=== PATIENT | female | born 2000 | race Caucasian/White ===

== ENCOUNTER 2021-07-07 16:19 | Outpatient (REF) | payer BC, SELFPAY | END 2021-07-07 16:20 | disposition home or self-care (01) | LOC: NCHCN 16:19 | PROVIDERS: Visit Provider Nurse Practitioner Family | DX: R35.0 Frequency of micturition (principal) | CPT/HCPCS: 87077; 87086; 87186 ==

== ENCOUNTER 2023-04-18 07:05 | Day surgery (SDC) | payer BC, SELFPAY ==
[2023-04-18] VITALS (8 sets, daily range): BP systolic 100–112; BP diastolic 62–79; PULSE 55–68; RESP 12–18; TEMP 36.4–36.8; O2SAT 99–100; BMI 27.2
[2023-04-18] MEDS: Lactated Ringers 1,000 ML 80 ML IV (07:52)
--- NOTE | 2023-04-18 07:55 | W.ANESPRE ---
General Info Date of Service Date Performed: 04/18/23 Height: 5 ft 3.75 in Weight: 71.4 kg Body Mass Index (BMI): 27.2 Surgical Procedure: Operation Date: 04/18/23 08:55 Proposed Procedure Side Surgeon p Tonsillectomy & Possible Adenoidectomy Jet Vogt MD Meds Allergies and Home Medications Allergies Allergy/AdvReac Type Severity Reaction Status Date / Time No Known Allergies Allergy Verified 04/18/23 07:19 Home Medication Medication Instructions Recorded citalopram 10 mg tablet 10 mg PO HS 12/17/22 clotrimazole 1 % vaginal cream 1 appful vaginal QHS 12/17/22 etonogestrel 68 mg subdermal 1 implant subdermal ONCE 12/17/22 implant (Nexplanon) linaclotide 72 mcg capsule 72 mcg PO HS 12/17/22 (Linzess) cholecalciferol (vitamin D3) 125 125 mcg PO DAILY 04/13/23 mcg (5,000 unit) capsule Current Visit Medications: Current Medications Generic Name Dose Route Start Last Admin Trade Name Freq PRN Reason Stop Dose Admin Ringer's Solution 1,000 mls @ 80 mls/hr 04/18/23 06:00 04/18/23 07:52 IV 04/18/23 23:59 80 mls/hr INFUSION JANE Administration Cefazolin Sodium/Dextrose 2 gm in 50 mls @ 100 mls/hr 04/18/23 06:00 Ancef Duplex IVPB 04/18/23 23:59 PREOP JANE Tranexamic Acid 1,000 mg/ 60 mls @ 360 mls/hr 04/18/23 06:00 Sodium Chloride IVPB 04/18/23 18:00 PREOP JANE IV Miscellaneous Supplies 1 each 04/18/23 06:00 Iv Access IV 04/18/23 23:59 DIRECTED JANE Sodium Chloride 0 ml 04/18/23 06:00 Normal Saline Flush 10 Ml Syr IV 04/18/23 23:59 PRN PRN Sodium Chloride 0 ml 04/18/23 06:00 Normal Saline 10 Ml Vial IJ 04/18/23 23:59 DIRECTED PRN Sterile Water 0 ml 04/18/23 06:00 Water,Injection,Sterile 10 Ml Vial IJ 04/18/23 23:59 DIRECTED PRN PFSH Active Problems Active Problems: Problem Status Onset Code Tonsillar hypertrophy J35.1 Tonsil stone J35.8 Chronic tonsillitis J35.01 Medical History Medical History Anxiety disorder Depression IBS (irritable bowel syndrome) Iron deficiency anemia Irregular menses Low serum vitamin B12 Palpitations Per pt. states it was relatd to her b12 and anxiety states it was more stress induced (2018) Presence of subcutaneous contraceptive implant Vitamin D deficiency Surgical History Surgical History Encounter for Pap smear of cervix with HPV DNA cotesting 01/04/2022 History of colonoscopy 07/10/2021 Tobacco Smoking/Tobacco Use Status: Never Alcohol Alcohol Intake: current Alcohol intake frequency: a few times a week Substance Use Substance use: Never Substance use type: does not use Vital Signs and Lab Results Vital Signs Most Recent Vital Signs in EMR: Most Recent Vital Signs Temp Pulse Resp BP Pulse Ox 36.5 C 68 18 103/74 100 04/18/23 07:12 04/18/23 07:12 04/18/23 07:12 04/18/23 07:12 04/18/23 07:12 Point of Care Results Point of Care Results: POC- Test(urine) Negative 04/18/23 07:38 Lab Results Blood Type / Crossmatch: No Data to Display Complete Blood Count: No Data to Display Complete Metabolic Panel: No Data to Display Liver Function Panel: No Data to Display Coagulation Panel: No Data to Display Cardiac Panel: No Data to Display Arterial Blood Gas: No Data to Display Venous Blood Gas: No Data to Display Pancreas Panel: No Data to Display Thyroid Panel: No Data to Display Infectious Disease: No Data to Display Blood Cultures: No Data to Display Toxicology Panel: No Data to Display Panel: No Data to Display Anesthesia Assessment and Plan Anesthesia History Personal History: No History of Anesthesia Complications Family History: No Family History of Anesthesia Complications Exercise Tolerance Exercise Tolerance: Metabolic Equivalents>4 Pertinent Negatives Pertinent Negatives: No Symptoms of GERD, No Major Cardiovascular Symptoms or Complaints, No Major Pulmonary Symptoms or Complaints and No History of CVA/TIA Cardiac & Pulmonary Exam Cardiac Exam: Normal S1/S2 Heart Sounds Pulmonary Exam: Clear Bilateral Breath Sounds Implantable Cardiac Device Does patient have a Pacemaker or an ICD?: No Airway Exam Known Difficult Airway: No Mallampati Class: 1 Mouth Opening: Normal (> 3cm) Thyromental Distance: Greater than 3 cm Neck Range of Motion: Full ROM Neck Circumference: Normal Teeth Condition: Normal Dentition ASA Classification ASA Score: ASA 2 Emergency Case?: No NPO Status NPO Status: NPO Clears >2 hours, Solids >8 hours Status Status: Negative HCG Anesthesia Plan Resuscitation Status: Full Code Anesthesia Technique: General Anesthesia Airway Planned: Endotracheal Tube Monitors Used: Standard Monitors
[2023-04-18] MEDS: ceFAZolin 2 GM/50 ML BAG IVPB (08:30)
--- NOTE | 2023-04-18 08:47 | TONSIL_PTH ---
PATIENT: Jeanette Benítez LOC: [facility] U#:[id number] AGE/SX: 22/F ROOM: RE04/18/[address]: Jet Vogt MD : 2000 BED: DIS: 04/18/2023 SPEC #: [id number] RECD: 04/18/23 12:28 STATUS: MICHAEL REQ #: [id number] JEAN: 04/18/23 08:[address]: Jet Vogt DEPT: Surgical Specimen RECD BY: Iraida Vo ENTERED: 04/18/23 12:28 SP TYPE: TONSIL OTHR DR: Petrona Gonzalez Tissues: 1 - TONSIL AGE 17 & OVER 2 - TONSIL AGE 17 & OVER Procedures: GROSS AND MICRO LEVEL 3 Comments: [id number]
--- NOTE | 2023-04-18 09:13 | W.PM.DSUDISC ---
Date of service: 04/18/23 Time of Service: 09:13 Discharge Plan Disposition Condition: Good Discharge Details Reason For Visit: Tonsillectomy Attending Provider: Jet Vogt Primary Care Provider: Petrona Gonzalez Home Meds and New Rx's Prescriptions: No Action cholecalciferol (vitamin D3) 125 mcg (5,000 unit) capsule 125 mcg PO DAILY citalopram 10 mg tablet 10 mg PO HS clotrimazole 1 % cream 1 appful vaginal QHS Linzess 72 mcg capsule 72 mcg PO HS Nexplanon 68 mg implant 1 implant subdermal ONCE Rx Instructions: as a single dose Discharge Instructions Additional Instructions: My cell phone number is [phone]. Please call with any questions or concerns. If you deem it an emergency and I cannot be reached, please call [phone] or proceed to the emergency room Stand Alone Forms: ENT- T&A Instr. Sin Referrals: Jet Vogt MD [ [facility] STAFF PHYSICIAN] - (1 month, please call for appointment prior to patient's departure)
--- NOTE | 2023-04-18 09:15 | W.PM.OP ---
Date of service: 04/18/23 Time of Service: 09:15 Operative Note Operative Note DATE OF PROCEDURE: 04/18/23 PRE-OP DIAGNOSIS: Chronic tonsillitis POST-OP DIAGNOSIS: same PROCEDURE: Tonsillectomy SURGEON: Jet Vogt ANESTHESIA TYPE: General LMA/ETT Refer to Anesthesia Record ESTIMATED BLOOD LOSS: 100 PATHOLOGY: other (Tonsils) COMPLICATIONS: None Patient was transported to: PACU Patient's condition: stable Indications: Patient with the above problems. Options were explained to family regarding further management. They elected to undergo the above procedure. Consent was filled out and signed prior to surgery. H&P was reviewed. There have been no changes. All questions were answered prior to surgery. Risks of narcotics were discussed at length again. Findings: Atrophic adenoids, palate intact to inspection and palpation, posterior choana widely patent, 3+ tonsils with copious cryptic debris, tonsils were quite friable Procedure Description: After obtaining an adequate level of general endotracheal anesthesia the patient was positioned in the supine position and prepped and draped in appropriate fashion. A Amanda Tarun mouthgag was carefully introduced into the oral cavity and opened revealed soft and hard palate which were examined revealing no evidence of an occult cleft palate. 0.25% Marcaine with 1/100,000 epinephrine was injected in the submucosal plane around each tonsil. The adenoids were examined revealing no significant adenoid. Each tonsil was then pulled medially and posteriorly and a 12 blade used to incise mucosa along the superior, anterior, and posterior edges of the tonsil. A Casa elevator was used to disarticulate the tonsil from the superior tonsillar fossa and the tonsil was then carefully dissected from the tonsillar bed down to the inferior pole at which point time a tonsillar snare was used to amputate the tonsil from the tonsillar fossa. Once been accomplished bilaterally, electrocautery suction tip catheter set on 15 W coagulation was used to achieve relative hemostasis within the tonsillar beds. A Amanda Tarun mouthgag was relaxed and reopened revealing no further bleeding. Valsalva was performed to 40 with no bleeding. The patient was then awakened and extubated by anesthesia and taken to the recovery room in stable condition. I was present throughout the entire case.
[2023-04-18] MEDS: ACETAMINOPHEN 1,000 MG/100 ML BTL 400 MG IVPB (09:38)
[2023-04-18] MEDS: Ibuprofen 600 MG TAB PO (10:18)
--- NOTE | 2023-04-18 13:39 | W.ANESPOSTOP ---
Postoperative Evaluation Date, Time and Location Date Performed: 04/18/23 Time Performed: 13:40 Patient Location: Day Surgery Unit Vital Signs Most Recent Imported Vital Signs: Most Recent Vital Signs Temp Pulse Resp BP Pulse Ox 36.5 C 62 18 107/68 100 04/18/23 10:47 04/18/23 10:47 04/18/23 10:47 04/18/23 10:47 04/18/23 10:47 Pain Score Most Recent Pain Score: Most Recent Pain Score Pain Level 4 04/18/23 10:47 Assessment Mental Status: Awake (Alert & Oriented to Patient Baseline) Airway and Respiratory Function: Patent airway with normal (patient baseline) respiratory exam Cardiovascular Function: Hemodynamically Stable Hydration Status: Adequately Hydrated Nausea & Vomiting: No Nausea or Vomiting Pain: Pain is tolerable per patient Peripheral Nerve Block: Patient did not receive a nerve block
== END 2023-04-18 11:02 ==
PROVIDERS: PCP Advanced Practice Midwife; Visit Provider Otolaryngology
PROC: (CPT 42826; principal; 2023-04-18 08:45)
DX: J35.01 Chronic tonsillitis (principal)
CPT/HCPCS: 42826; 81025; 88304; J0131; J0690; J1100; J2001; J2250; J2405; J2704